=== PATIENT | male | born 1950 | race Caucasian/White ===

== ENCOUNTER 2022-01-16 10:15 | Inpatient (IN) | payer OTHER, MEDICARE, SELFPAY ==
[~2022-01-16] VITALS: Ht 170.2 cm; Wt 79.8 kg
[~2022-01-16 10:15] MED LIST: IBUP-2213 PO; RANI-287 PO
--- NOTE | 2022-01-16 10:19 | NUR ---
PT AMBULATED TO [facility] WITH A STEADY GAIT.
[2022-01-16 10:21] VITALS: BP 154/89
--- NOTE | 2022-01-16 10:22 | NUR ---
Hayden jurado in [facility] - 01/16/22 at 1608 by [facility] BLS TO ER [facility]
--- NOTE | 2022-01-16 10:40 | NUR ---
AMBULATED TO BED 11 WITH CANE.
--- NOTE | 2022-01-16 11:04 | NUR ---
71 Y/O M BIBA FROM URGENT CARE FOR ER EVALUATION OF R THIGH SWELLING X 3 DAYS. PT A&OX4, AMBULATED WITH CANE, C/O R THIGH SWELLING/TENDERNESS/PAIN S/P HEROINE INJECTION 3 DAYS AGO. PT STATES SYMPTOMS PRESENTED SAME DAY AFTER HEROINE USE. PT NOTED WITH BILATERAL LE DISCOLORATION AND 3 PUNCTURE WOUNDS TO R THIGH. +SWELLING/REDNESS/WARMTH NOTED TO R THIGH. DENIES MEDS PRIOR TO ARRIVAL. DENIES FEVER, CHILLS, N/V/D, CHEST PAIN, SOB, DIZZINESS, HEADACHE. COLD MEAT CHEF IN PLACE. BED LOCKED IN LOWEST POSITION, SIDE RAILS X 1. PMH: HTN MEDS: BLOOD THINNERS, LISINOPRIL, LEXAPRO, METHADONE NKDA SX: HERNIA SX
[2022-01-16] MEDS ORDERED: NACL 0.9% 1,000 ML IV SCH (11:30)
--- NOTE | 2022-01-16 11:40 | NUR ---
EMT AT BEDSIDE FOR EKG
--- NOTE | 2022-01-16 11:45 | NUR ---
JOSÉ LUIS AND ANGELINE COLLECTED, WALKED TO LAB AND HANDED TO CPT JAVIER
--- NOTE | 2022-01-16 11:48 | NUR ---
US TECH AT BEDSIDE
--- NOTE | 2022-01-16 11:55 | NUR ---
PT REPORTS PATIENT IS A HARD STICK. ALEC GRAHAM MADE AWARE FOR ULTRASOUND GUIDED IV
[2022-01-16 12:23] LABS: APPEARANCE,URINE CLEAR (CLEAR); BILIRUBIN,URINE NEGATIVE (NEGATIVE); BLOOD, URINE NEGATIVE (NEGATIVE); COLOR,URINE YELLOW (YELLOW); LEUKOCYTE ESTERASE ,URINE NEGATIVE (NEGATIVE); NITRITE, URINE NEGATIVE (NEGATIVE); PH,URINE 6.5 (5.0-9.0); UGLUCOSE NEGATIVE (NEGATIVE)
[2022-01-16 12:48] LABS: BARBITURATE, URINE NEGATIVE ng/ml (NEG <=200); BENZODIAZEPINE, URINE NEGATIVE ng/mL (NEG <=200); CANNABINOID, URINE NEGATIVE ng/mL (NEG <=50); COCAINE, URINE NEGATIVE ng/mL (NEG <=300); OPIATE, URINE POSITIVE ng/mL (NEG <=2000); PHENCYCLIDINE SCREEN,URINE NEGATIVE ng/mL (NEG <=25)
[2022-01-16] MEDS ORDERED: VANCOMYCIN 500 MG in DEXTROSE 5% 100 ML IV SCH (12:55)
[2022-01-16] MEDS ORDERED: VANCOMYCIN 1,000 MG in DEXTROSE 5% 250 ML IV ONE (12:55)
--- NOTE | 2022-01-16 13:07 | NUR ---
IV FLUIDS NS STARTED. PT TOLERATED WELL.
[2022-01-16] MEDS ORDERED: VANCOMYCIN 1,000 MG VIAL ONE (13:25)
[2022-01-16] MEDS ORDERED: VANCOMYCIN 500 MG VIAL ONE (13:26)
[2022-01-16 13:59] LABS: ALBUMIN 2.4 g/dL (3.4-5.0); ANION GAP 11.4 (8-16); CARBON DIOXIDE 24.7 mmol/L (21-32); CREATININE 0.8 mg/dL (0.6-1.3); POTASSIUM 4.1 mmol/L (3.5-5.1); TOTAL BILIRUBIN 1.4 mg/dL (0.0-1.0)
[2022-01-16 14:03] LABS: ACETAMINOPHEN < 0.5 ug/ml (10-30); SALICYLATE < 2.8 mg/dL (2.8-20.0)
--- NOTE | 2022-01-16 14:03 | NUR ---
PT PROVIDED WITH TURKEY SANDWICH PER REQUEST
[2022-01-16 14:33] LABS: BASOPHILS % (AUTO) 0.5 % (0.0-2.0); EOSINOPHILS # (AUTO) 0.1 K/uL (0-0.4); EOSINOPHILS % (AUTO) 0.9 % (0.0-4.0); HEMATOCRIT 31.4 % (36-52); HEMOGLOBIN 10.3 g/dL (12.0-18.0); LYMPHOCYTES % (AUTO) 15.7 % (20.5-51.1); MEAN CORPUSCULAR HEMOGLOBIN 28 pg (27-31); MEAN CORPUSCULAR HGB CONC 33 g/dL (33-37); MEAN CORPUSCULAR VOLUME 84.1 fL (80-94); MONOCYTES # (AUTO) 0.4 K/uL (0.8-1.0); MONOCYTES % (AUTO) 6.3 % (1.7-9.3); NEUTROPHILS % (AUTO) 76.6 % (42.2-75.2); PLATELET COUNT (AUTO) 78 K/uL (140-450); RED BLOOD CELL COUNT(AUTO) 3.73 MIL/uL (4.20-6.10); RED CELL DISTRIBUTION WIDTH 18.3 % (11.6-13.7); WHITE BLOOD COUNT (AUTO) 6.5 K/uL (4.8-10.8)
--- NOTE | 2022-01-16 15:33 | NUR ---
Patient appears to be resting both eyes clothes comfortably in bed. Vital Signs within normal limits. Respirations even and unlabored.
--- NOTE | 2022-01-16 16:13 | NUR ---
REPORT GIVEN TO TREVA KELLEY IN MED SURG UNIT
[2022-01-16] MEDS ORDERED: [UNRECOGNIZED DRUG - CODE] PO (16:28)
[2022-01-16] MEDS ORDERED: LISI40TA12 PO (16:28)
[2022-01-16] MEDS ORDERED: APIX5TAB PO (16:28)
--- NOTE | 2022-01-16 16:42 | NUR ---
PT TRANSFERED TO MED SURG IN STABLE CONDITION
--- NOTE | 2022-01-16 16:42 | NUR ---
Patient will be admitted to care of . Admited to med surg. Will go to room 106b. Belongings list completed. Report to WARREN nelson.
[2022-01-16 17:00] VITALS: BP 118/55
--- NOTE | 2022-01-16 17:00 | NUR ---
RECEIVED REPORT FROM ER NURSE. ADMITTED A 71Y/O MALE, HOMELESS. WITH A CHIEF COMPLAINT OF RLE SWELLING. ADMITTING DX OF CELLULITIS. HX OF HTN, COVID, HEROIN ABUSE, SMOKING. FULL CODE, NKA, AMBULATORY WITH CANE. PT IS AOX4, ABLE TO MAKE NEEDS KNOWN. NO C/O PAIN. NO SOB ON ROOM AIR. WITH IV ON NADIA 18G. BOWEL AND BLADDER CONTINENT. SKIN INTACT BUT RLE SWELLING. PLAN OF CARE DISCUSSED.
--- NOTE | 2022-01-16 18:26 | NUR ---
PT IN BED EATING DINNER. TOLERATING WELL. NO C/O PAIN, NO SOB ON ROOM AIR
[2022-01-16 18:53] LABS: BARBITURATE, URINE NEGATIVE ng/ml (NEG <=200); BENZODIAZEPINE, URINE NEGATIVE ng/mL (NEG <=200)
[2022-01-16 18:54] LABS: CANNABINOID, URINE NEGATIVE ng/mL (NEG <=50); COCAINE, URINE NEGATIVE ng/mL (NEG <=300); OPIATE, URINE POSITIVE ng/mL (NEG <=2000); PHENCYCLIDINE SCREEN,URINE NEGATIVE ng/mL (NEG <=25)
--- NOTE | 2022-01-16 19:20 | NUR ---
RECD. RESTING IN BED, AWAKE, A/OX3. RESPIRATION EVEN AND UNLABORED. IV SALINE LOCK AT THE RIGHT AC, PATENT AND INTACT. WITH BILATERAL DISCOLORATION AND PITTING EDEMA, +2 ON BILATERAL LOWER EXTREMITIES. ABLE TO AMBULATE TO THE BR. DENIES PAIN 0/10.
[2022-01-16 20:00] VITALS: BP_SYST 118; BP_SYST 127; BP_DIAS 55; BP_DIAS 74
--- NOTE | 2022-01-16 20:00 | NUR ---
Patient's Plan of Care was discussed and reviewed with MODELING AND SIMULATION ANALYST:ELLEN DAHL.
--- NOTE | 2022-01-16 21:00 | NUR ---
SNACK FOR THE NIGHT GIVEN REQUESTED.
--- NOTE | 2022-01-16 23:00 | NUR ---
PLACLE TWO PILLOWS UNDER BILATERAL LOWER EXTREMITIES, INSTRUCTED TO KEEP BOTH BLE ELEVATED ON PILLOWS TO DECREASE EDEMA. VERBALIZED UNDERSTANDING.
--- NOTE | 2022-01-17 01:00 | NUR ---
SLEEPING COMFORTABLY IN BED. RESPIRATION EVEN AND UNLABORED.
--- NOTE | 2022-01-17 03:00 | NUR ---
ON HIS LEFT SIDE COMFORTABLY ASLEEP.
[2022-01-17 04:00] VITALS: BP 125/65
--- NOTE | 2022-01-17 04:40 | NUR ---
REFUSED AM BLOOD DRAW PER CLOTH DYER.
--- NOTE | 2022-01-17 07:00 | NUR ---
ABLE TO SLEEP WELL. CONDITION REMAIN STABLE. WILL ENDORSE TO AM SHIFT NURSE FOR CONTINUITY OF CARE.
--- NOTE | 2022-01-17 07:02 | NUR ---
RECEIVED REPORT FROM VEST FRONT PRESSER NURSE. PT IN BED AT THIS TIME, YELLING AND SCREAMING, STATING THAT HE WANTS BREAKFAST RIGHT NOW OR HE IS GOING TO LEAVE. GAVE PT A SNACK, PT CONTINUES TO YELL. PT IS ON ROOM AIR, RESPIRATIONS ARE EVEN AND UNLABORED. NO SIGNS OF DISTRESS NOTED. CALL LIGHT WITHIN REACH. ALL SAFETY MEASURES IN PLACE. WILL CONTINUE TO MONITOR.
[2022-01-17 08:00] VITALS: BP 116/64
--- NOTE | 2022-01-17 09:10 | NUR ---
PT IN BED, YELLING AND SCREAMING. THROWING THINGS AROUND. STATING "I HATE IT HERE, WHY AM I EVEN HERE, I WANNA GET OUT". ATTEMPTED TO DE-ESCALADE SITUATION AND RE-ORIENTATE PT. PT YELLED AND CURSED AT STAFF. WILL CONTINUE TO MONITOR.
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
--- NOTE | 2022-01-17 09:38 | NUR ---
PT YELLING THAT HE WANTS TO LEAVE. WENT OVER AMA FORM WITH PT. WENT OVER RISKS AND DANGERS OF GOING AMA, PT STATED "I DONT CARE, JUST GET ME OUT OF HERE". PT SIGNED FORM. PT AWAITING RIDE TO COME PICK HIM UP.
[2022-01-17] MEDS ORDERED: IBUPROFEN 600 MG TAB PO SCH (10:20)
[2022-01-17] MEDS ORDERED: ZOLPIDEM 5 MG TAB PO PRN (10:30)
[2022-01-17] MEDS ORDERED: NACL 0.9% 1,000 ML IV SCH (10:30)
[2022-01-17] MEDS ORDERED: VANCOMYCIN PER PHARMACY MC PRN (10:30)
[2022-01-17] MEDS ORDERED: ACETAMINOPHEN 325 MG TAB PO PRN (10:30)
[2022-01-17] MEDS ORDERED: DOCUSATE SODIUM 100 MG GELCAP PO PRN (10:30)
[2022-01-17] MEDS ORDERED: MORPHINE SULFATE 2 MG/ML SYR IVP PRN (10:30)
[2022-01-17] MEDS ORDERED: HYDROcodone/APAP 5/325 MG 1 TAB TAB PO PRN (10:30)
[2022-01-17] MEDS ORDERED: LORazepam 2 MG/ML VIAL IM/IVP PRN (10:30)
[2022-01-17] MEDS ORDERED: ONDANSETRON 4 MG/2 ML VIAL IM/IVP PRN (10:30)
--- NOTE | 2022-01-17 10:33 | NUR ---
LOW RISK PATIENT HAS BEEN SCREENED AND CATEGORIZED LOW NUTRITION RISK. PATIENT WILL BE SEEN WITHIN 7 DAYS OF ADMISSION. 01/23/[address]
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
[2022-01-17] MEDS ORDERED: APIXABAN 2.5 MG TAB PO SCH (21:00)
[2022-01-18] MEDS ORDERED: lisinopriL 20 MG TAB PO SCH (09:00)
[2022-01-18] MEDS ORDERED: FAMOTIDINE 20 MG TAB PO SCH (09:00)
== END 2022-01-17 10:56 | disposition left against medical advice (07) | DRG 383 ==
LOC: MED 10:15 → MTU 15:56
DX: L03.90 Cellulitis, unspecified (principal); E43 Unspecified severe protein-calorie malnutrition; J18.9 Pneumonia, unspecified organism; E87.1 Hypo-osmolality and hyponatremia; F11.10 Opioid abuse, uncomplicated; D64.9 Anemia, unspecified; I10 Essential (primary) hypertension; K21.9 Gastro-esophageal reflux disease without esophagitis; F17.210 Nicotine dependence, cigarettes, uncomplicated; I87.8 Other specified disorders of veins; R74.01 Elevation of levels of liver transaminase levels; S20.352A Superficial foreign body of left front wall of thorax, initial encounter; X58.XXXA Exposure to other specified factors, initial encounter; Y93.89 Activity, other specified; Y92.89 Other specified places as the place of occurrence of the external cause; Y99.8 Other external cause status; Z68.27 Body mass index [BMI] 27.0-27.9, adult; Z79.01 Long term (current) use of anticoagulants; Z79.899 Other long term (current) drug therapy
CPT/HCPCS: 36415; 71045; 80053; 80305; 81003; 82550; 83605; 83880; 84484; 85025; 87040; 87081; 93005; 93970; 96365; 96366; 99285; G0480; G0482; J0696; J3370; J7030; J7060; Q0092